=== PATIENT | female | born 1950 | race Caucasian/White ===

== ENCOUNTER → 2022-07-29 | Outpatient (CLI) | payer MEDICARE, OTHER ==
--- NOTE | 2022-07-29 09:02 | Diagnostic Imaging Report ---
PROCEDURE: CT abdomen and pelvis without contrast. TECHNIQUE: Multiple contiguous axial images were obtained through the abdomen and pelvis without the use of intravenous contrast. Auto Exposure Controls were utilized during the CT exam to meet ALARA standards for radiation dose reduction. INDICATION: Right posterior abdominal pain and hematuria. No prior studies are available for comparison. FINDINGS: Imaging through lung bases does show a 10 mm slightly irregular density in the right middle lobe, only partially included on this exam. There is a large hiatal hernia. The liver and gallbladder are unremarkable. There is no biliary ductal dilatation. Pancreas unremarkable. There is a low-density lesion within the spleen measuring approximately 4.0 x 2.9 cm, perhaps a cyst. No adrenal mass is identified. Kidneys contain tiny calcific densities suggestive of a nonobstructing calculi. No ureteral or bladder calculi are seen. There is no hydronephrosis. Aorta is nonaneurysmal. There is a small fat-containing umbilical hernia. Bowel loops are nonobstructed. There is extensive diverticulosis of the sigmoid and mild diverticulosis of the descending colon. There is no evidence of acute diverticulitis. The uterus and bladder are unremarkable. There is no ascites. No definite inflammatory changes are seen. IMPRESSION: 1. Uncomplicated diverticulosis. 2. Large hiatal hernia. 3. Irregular density in the right middle lobe, not entirely included on this study. Dedicated CT chest would be useful for further evaluation. Dictated by: Dictated on workstation # [id number]
== END ==
LOC: RAD FS 08:16
PROVIDERS: ATTEND Student in an Organized Health Care Education/Training Program
DX: K57.30 Diverticulosis of large intestine without perforation or abscess without bleeding (principal); K44.9 Diaphragmatic hernia without obstruction or gangrene; R91.8 Other nonspecific abnormal finding of lung field; M54.50 Low back pain, unspecified
CPT/HCPCS: 74176